=== PATIENT | female | born 1995 | race Hispanic/Latino ===

== ENCOUNTER → 2023-07-14 | Emergency (ER) | payer SELFPAY ==
[~2023-07-14] MED LIST: DIPHENHYDRAMINE 50 MG/ML VIAL ONE; KETOROLAC 30 MG/ML INJ ONE; METOCLOPRAMIDE 10 MG/2mL INJ ONE; NA CHLORIDE 0.9% 1,000 ML ONE; NA CHLORIDE 0.9% 50 ML ONE
--- OUTSIDE RECORDS SUMMARY | 2023-07-14 23:48 | XMS REPORT | Continuity of Care Document ---
Author Name Unknown Address [address] [place] [address] thconnect Address [address] [place] [address] Care Team Providers Care Physician Assistant Psychiatry Name Role Phone [email or web address] Attending Clinician Unavaila ble [email or web address] Admitting Clinician Unavaila ble Encounters Start Date/Time End Date/Time Encounter Type Admission Type Attending Clinicians Care Facility Care Department Encounter ID Source 2023-05-24 00:00:00 2023-05-24 00:00:00 Outpatient [email or web address] [facility] [id number] [facility]
[2023-07-15 00:58] LABS: Absolute Lymphocytes (CBC) 5.6 K/uL (0.7-4.9); Hematocrit 39.4 % (36.0-45.0); Lymphocytes % 46.1 % (15.3-44.8); MCV 81.7 fL (80-100); MPV 8.2 fL (7.6-11.3); Platelets 367 thou/uL (152-406); RBC Red Blood Cell Count 4.82 M/uL (3.86-4.86)
[2023-07-15 01:03] LABS: Specific Gravity 1.003 (1.005-1.030)
[2023-07-15 01:06] LABS: ALT/SGPT 35 U/L (13-56); AST/SGOT 20 U/L (15-37); Albumin 3.9 g/dL (3.4-5.0); Alkaline Phosphatase 102 U/L (45-117); BUN Blood Urea Nitrogen 5 mg/dL (7-18); Bicarbonate 24 mEq/L (21-32); Bilirubin Total 0.2 mg/dL (0.2-1.0); Glomerular Filtration Rate 125 ml/min (=/>90); Glucose Level 88 mg/dL (74-106); Potassium 3.3 mEq/L (3.5-5.1); Protein, Total 8.5 g/dL (6.4-8.2); Sodium Level 139 mEq/L (136-145); Specific Gravity < 1.005 (1.005-1.030); Troponin High Sensitivity 7.9 pg/mL (<58.9); Urine Bacteria <20 /HPF (<20); Urine Bilirubin NEGATIVE (Negative); Urine Blood Negative (Negative); Urine Clarity Clear (Clear); Urine Color Colorless (Yellow); Urine Glucose NEGATIVE (Negative); Urine Protein NEGATIVE (Negative); Urine RBC None Seen /HPF (None Seen); Urine Urobilinogen Normal (Normal); Urine pH 6.5 (5.0-7.0)
[2023-07-15 01:31] LABS: Bilirubin Direct < 0.1 mg/dL (0-0.2); Bilirubin Indirect, Calculated ND mg/dL (0.2-0.8)
[2023-07-15 01:37] LABS: Blood Morphology Comment NOT SEEN (NOT SEEN); Platelet Estimate ADEQ
--- NOTE | 2023-07-15 03:05 | EDPHYS ---
Physician Documentation [facility] Name: Lalitha Huertas Age: 28 yrs Sex: Female : 1995 Arrival Date: 07/14/2023 Time: 23:44 Bed 7 Private MD: ED Physician Osman Dumont HPI: 07/14 23:53 This 28 yrs old Female presents to ER via Unassigned with complaints of sp4 NUMBNESS/TINGLING IN EXT. 07/15 00:59 28-year-old female presents with 2 weeks of intermittent right-sided tingling, some sp4 report of right-sided numbness as well, report of headache, report of chest pain, intermittent tingling which became worse this evening. . Historical: - Allergies: 00:05 No Known Allergies; jb4 - PMHx: 00:05 None; jb4 - PSHx: 00:05 None; jb4 - Immunization history:: Adult Immunizations not up to date. - Social history:: Smoking status: Patient denies any tobacco usage or history of. Patient uses alcohol, occasionally. - Family history:: not pertinent. ROS: 00:59 Constitutional: Positive right-sided numbness and tingling, intermittent chest pains sp4 on the right side intermittent headache. 00:59 All other systems are negative, Exam: 00:58 ECG was reviewed by the Attending Physician. EKG time 0047, normal sinus rhythm at a sp4 rate of 90, normal EKG 00:59 Constitutional: This is a well developed, well nourished patient who is awake, alert, sp4 and in no acute distress. Head/Face: Normocephalic, atraumatic. Eyes: Pupils equal round and reactive to light, extra-ocular motions intact. Lids and lashes normal. Conjunctiva and sclera are not injected. Cornea within normal limits. Periorbital areas with no swelling, redness, or edema. ENT: Nares patent. No nasal discharge, no septal abnormalities noted. Tympanic membranes are normal and external auditory canals are clear. Oropharynx with no redness, swelling, or masses, exudates, or evidence of obstruction, uvula midline. Mucous membranes moist. Neck: Trachea midline, no thyromegaly or masses palpated, and no cervical lymphadenopathy. Supple, full range of motion without nuchal rigidity, or vertebral point tenderness. Chest/axilla: Normal chest wall appearance and motion. Nontender with no deformity. No lesions are appreciated. Cardiovascular: Regular rate and rhythm with a normal S1 and S2. No gallops, murmurs, or rubs. Normal PMI, no JVD. No pulse deficits. Respiratory: Lungs have equal breath sounds bilaterally, clear to auscultation and percussion. No rales, rhonchi or wheezes noted. No increased work of breathing, no retractions or nasal flaring. Abdomen/GI: Soft, non-tender, with normal bowel sounds. No distension or tympany. No guarding or rebound. No evidence of tenderness throughout. Back: No spinal tenderness. No costovertebral tenderness. Skin: Warm, dry with normal turgor. Normal color with no rashes, no lesions, and no evidence of cellulitis. MS/ Extremity: Pulses equal, no cyanosis. Neurovascular intact. Full, normal range of motion. Neuro: Awake and alert, GCS 15, oriented to person, place, time, and situation. Cranial nerves II-XII grossly intact. Motor strength 5/5 in all extremities. Sensory grossly intact. Psych: Awake, alert, with orientation to person, place and time. Behavior, mood, and affect are within normal limits Vital Signs: 00:01 BP 134 / 80; Pulse 93; Resp 16; Temp 98.2(TE); Pulse Ox 100% on R/A; Weight 66.68 kg; jb4 Height 5 ft. 1 in. ; Pain 3/10; 00:28 BP 114 / 69; Pulse 75; Resp 18; Pulse Ox 100% ; ls5 03:05 BP 91 / 50; Pulse 97; Resp 18 S; Pulse Ox 98% on R/A; as6 00:01 Body Mass Index 27.78 (66.68 kg, 154.94 cm) jb4 00:01 Pain Scale: Adult jb4 NIH Stroke Scale Scores: 00:13 NIHSS Score: 0 sp4 Reza Coma Score: 00:13 Eye Response: spontaneous(4). Motor Response: obeys commands(6). Verbal Response: sp4 oriented(5). Total: 15. Visual Acuity: 00:13 Left Eye Visual acuity 20/20, Pupil size 5 mm, Normal, React To Light, Reactive To sp4 Accomodation; Right Eye Visual acuity 20/20, Pupil size 5 mm, Normal, React To Light, Reactive To Accomodation; Both Eyes Visual acuity 20/20; Without Lenses; MDM: 07/14 23:55 Patient medically screened. sp4 07/15 01:01 Differential Diagnosis altered mental status, sepsis, flu. Data reviewed: vital signs, sp4 nurses notes, lab test result(s), EKG, radiologic studies, CT scan. Consideration of Admission/Observation Escalation of care including admission/observation considered. 01:28 ED course: CT - CLINICAL HISTORY: HEADACHE COMPARISON: None. 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 FINDINGS: There is no acute hemorrhage, mass effect or midline shift. Lamb-white differentiation is preserved. There is no hydrocephalus. There is no significant volume loss for age. The calvarium is intact. Orbits and globes are unremarkable. The paranasal sinuses are clear. Mastoid air cells are clear. IMPRESSION: No acute intracranial findings. 03:04 ED course: Workup reveals mild alcohol intoxication but is otherwise unremarkable. Her sp4 electrolytes are within tolerable limits. Patient's headache is gone. Patient is feeling much improved. Stable for discharge home. . 12 00:08 Order name: Basic Metabolic Panel; Complete Time: 02:59 sp4 07/15 00:08 Order name: CBC with Diff; Complete Time: 02:59 sp4 07/15 00:08 Order name: LFT's; Complete Time: 02:59 sp4 07/15 00:08 Order name: Magnesium; Complete Time: 02:59 sp4 07/15 00:08 Order name: Troponin HS; Complete Time: 02:59 sp4 07/15 00:12 Order name: Test, Urine; Complete Time: 01:24 sp4 07/15 00:13 Order name: Urinalysis W/Microscopic; Complete Time: 01:24 sp4 07/15 01:08 Order name: Manual Differential; Complete Time: 02:59 EDMS 07/15 01:09 Order name: T4 Free; Complete Time: 02:59 EDMS 07/15 01:09 Order name: Thyroid Stimulating Hormone; Complete Time: 02:59 EDMS 07/15 01:25 Order name: Alcohol Level; Complete Time: 02:59 sp4 07/15 00:09 Order name: CT Head Brain wo Cont sp4 07/15 00:08 Order name: EKG; Complete Time: 00:09 sp4 07/15 00:08 Order name: Cardiac monitoring; Complete Time: 00:26 sp4 07/15 00:08 Order name: EKG - Nurse/Tech; Complete Time: 00:51 sp4 07/15 00:08 Order name: IV Saline Lock; Complete Time: 00:26 sp4 07/15 00:08 Order name: Labs collected and sent; Complete Time: 00: sp4 07/15 00:08 Order name: O2 Per Protocol; Complete Time: 00:10 sp4 07/15 00:08 Order name: O2 Sat Monitoring; Complete Time: 00:10 sp4 EC:58 Rate is 90 beats/min. Rhythm is regular, Normal Sinus Rhythm. QRS [place] is Normal. MS sp4 interval is normal. QRS interval is normal. QT interval is normal. No Q waves. T waves are Normal. No ST changes noted. Clinical impression: Normal ECG. Interpreted by me. Reviewed by me. Administered Medications: 00:33 Drug: Ketorolac IVP 30 mg IVP once Route: IVP; Site: right antecubital; vc1 00:42 Drug: metoCLOPramide IVP 10 mg IVP once; over 1 to 2 minutes Route: IVP; Site: left vc1 antecubital; 00:42 Drug: diphenhydrAMINE IVP 25 mg IVP once Route: IVP; Site: left antecubital; vc1 01:29 Drug: NS 0.9% IV 1000 ml IV at 1 bolus Per protocol; 1000 mL bolus Route: IV; Rate: 1 vc1 bolus; Site: right antecubital; Disposition Summary: 07/15/23 03:05 Discharge Ordered Notes: Location: Home sp4 Problem: new sp4 Symptoms: have improved sp4 Condition: Stable sp4 Diagnosis - Anxiety disorder, unspecified sp4 - Acute anxiety attack, alcohol intoxication, sp4 Followup: sp4 - With: Praveen Galo DO - When: 7 - 10 days - Reason: Recheck today's complaints Discharge Instructions: - Discharge Summary Sheet sp4 - Panic Attack, Pism-cu-Hwgp sp4 Forms: - Patient Portal Instructions sp4 NIH Stroke Scale - NIH Stroke Score Date: 07/15/2023 Time: 00:13 Total Score = 0 10. Dysarthria (speech clarity - read or repeat words) - 0(Normal) 11. Extinction and Inattention (visual/tactile/auditory/spatial/personal) - 0(No abnormality) 1a. Level of Consciousness (LOC) - 0(Alert) 1b. Level of Consciousness (LOC) (Month \T\ Age) - 0(Both) 1c. LOC Commands (Open \T\ Closes Eyes/Coagulating Drying Supervisor) - 0(Both) 2. Best Gaze (Lateral Gaze Paresis) - 0(Normal) 3. Visual Field Loss - 0(No visual loss) 4. Facial Palsy - 0(Normal) 5a. Left Arm: Motor (10-second hold) - 0(No drift) 5b. Right Arm: Motor (10-second hold) - 0(No drift) 6a. Left Leg: Motor (5-second hold - always test supine) - 0(No drift) 6b. Right Leg: Motor (5-second hold - always test supine) - 0(No drift) 7. Limb Ataxia (finger/nose \T\ heel/bradford - test with eyes open) - 0(Absent) 8. Sensory Loss (pinprick arms/legs/face) - 0(Normal) 9. Best Language: Aphasia (description/naming/reading) - 0(No aphasia) Initials: sp4 Signatures: Dispatcher [employer] EDMS Dominick Morin RN RN jb4 Sil Cason RN RN vc1 Osman Dumont MD MD sp4 Corrections: (The following items were deleted from the chart) 01:09 00:58 THYROID STIMULAT HORMONE+C.LAB.BRZ ordered. EDMS EDMS 01:09 00:58 T4 FREE+C.LAB.BRZ ordered. EDMS EDMS
--- NOTE | 2023-07-15 03:05 | ER ---
Nurse's Notes [facility] Name: Lalitha Huertas Age: 28 yrs Sex: Female : 1995 Arrival Date: 07/14/2023 Time: 23:44 Bed 7 Private MD: Diagnosis: Anxiety disorder, unspecified;Acute anxiety attack, alcohol intoxication, Presentation: 07/15 00:01 Chief complaint: Patient states: for the past nearly 2 weeks. I have had intermittent jb4 numbness and tingling in my right extremities. It started in my hand and foot and tonight was the worst, it was my entire right side. I felt SOB and shaky. I fell better now but still a little shaky and have some numbness and tingling still. Coronavirus screen: At this time, the client does not indicate any symptoms associated with coronavirus-19. Ebola Screen: No symptoms or risks identified at this time. Initial Sepsis Screen: Does the patient meet any 2 criteria? No. Patient's initial sepsis screen is negative. Does the patient have a suspected source of infection? No. Patient's initial sepsis screen is negative. Risk Assessment: Do you want to hurt yourself or someone else? Patient reports no desire to harm self or others. Onset of symptoms was July 15, 2023. Transition of care: patient was not received from another setting of care. 00:01 Method Of Arrival: Ambulatory jb4 00:01 Acuity: MARIELA 3 jb4 Historical: - Allergies: 00:05 No Known Allergies; jb4 - PMHx: 00:05 None; jb4 - PSHx: 00:05 None; jb4 - Immunization history:: Adult Immunizations not up to date. - Social history:: Smoking status: Patient denies any tobacco usage or history of. Patient uses alcohol, occasionally. - Family history:: not pertinent. Screenin:14 [facility] ED Fall Risk Assessment (Adult) Score/Fall Risk Level 0 - 2 = Low Risk. Abuse as6 screen: Denies threats or abuse. Denies injuries from another. Nutritional screening: No deficits noted. Tuberculosis screening: No symptoms or risk factors identified. Assessment: 00:00 General: Appears in no apparent distress. uncomfortable, Behavior is anxious. General: vc1 Smells of alcohol. Pain: Denies pain. Neuro: Level of Consciousness is awake, obeys commands, Oriented to person, place, time, Reports numbness in right arm and left arm. Cardiovascular: No deficits noted. Respiratory: Airway is patent Respiratory effort is even, unlabored, Respiratory pattern is regular, symmetrical. GI: No deficits noted. No signs and/or symptoms were reported involving the gastrointestinal system. : No deficits noted. No signs and/or symptoms were reported regarding the genitourinary system. EENT: No deficits noted. No signs and/or symptoms were reported regarding the EENT system. Derm: No deficits noted. No signs and/or symptoms reported regarding the dermatologic system. 03:28 Reassessment: Patient and/or family updated on plan of care and expected duration. Pain vc1 level reassessed. Patient is alert, oriented x 3, equal unlabored respirations, skin warm/dry/pink. Patient states symptoms have improved. Vital Signs: 00:01 BP 134 / 80; Pulse 93; Resp 16; Temp 98.2(TE); Pulse Ox 100% on R/A; Weight 66.68 kg; jb4 Height 5 ft. 1 in. ; Pain 3/10; 00:28 BP 114 / 69; Pulse 75; Resp 18; Pulse Ox 100% ; ls5 03:05 BP 91 / 50; Pulse 97; Resp 18 S; Pulse Ox 98% on R/A; as6 00:01 Body Mass Index 27.78 (66.68 kg, 154.94 cm) jb4 00:01 Pain Scale: Adult jb4 Visual Acuity: 00:13 Left Eye Visual acuity 20/20, Pupil size 5 mm, Normal, React To Light, Reactive To sp4 Accomodation; Right Eye Visual acuity 20/20, Pupil size 5 mm, Normal, React To Light, Reactive To Accomodation; Both Eyes Visual acuity 20/20; Without Lenses; Reza Coma Score: 00:13 Eye Response: spontaneous(4). Motor Response: obeys commands(6). Verbal Response: sp4 oriented(5). Total: 15. NIH Stroke Scale Scores: 00:13 NIHSS Score: 0 sp4 ED Course: 07/14 23:46 Patient arrived in ED. jj6 23:53 Osman Dumont MD is Attending Physician. sp4 07/15 00:00 Dominick Morin RN is Primary Nurse. jb4 00:00 Patient has correct armband on for positive identification. Placed in gown. Bed in low vc1 position. Call light in reach. Client placed on continuous cardiac and pulse oximetry monitoring. NIBP monitoring applied. 00:05 Triage completed. jb4 00:05 Arm band placed on right wrist. jb4 00:15 Matthew Barnes, RN is Primary Nurse. as6 00:27 Inserted saline lock: 20 gauge in right antecubital area, using aseptic technique. ls5 Blood collected. 00:27 Urine collected: clean catch specimen, clear. ls5 00:43 CT Head Brain wo Cont In Process Unspecified. EDMS 01:21 T4 Free Sent. ls5 01:22 Thyroid Stimulating Hormone Sent. ls5 01:22 Manual Differential Sent. ls5 03:05 Praveen Galo DO is Referral Physician. sp4 03:27 No provider procedures requiring assistance completed. IV discontinued, intact, vc1 bleeding controlled, No redness/swelling at site. Pressure dressing applied. Administered Medications: 00:33 Drug: Ketorolac IVP 30 mg IVP once Route: IVP; Site: right antecubital; vc1 00:42 Drug: metoCLOPramide IVP 10 mg IVP once; over 1 to 2 minutes Route: IVP; Site: left vc1 antecubital; 00:42 Drug: diphenhydrAMINE IVP 25 mg IVP once Route: IVP; Site: left antecubital; vc1 01:29 Drug: NS 0.9% IV 1000 ml IV at 1 bolus Per protocol; 1000 mL bolus Route: IV; Rate: 1 vc1 bolus; Site: right antecubital; Medication: 00:14 VIS not applicable for this client. as6 Outcome: 03:05 Discharge ordered by . sp4 03:27 Discharged to home ambulatory, with significant other, vc1 03:27 Condition: good 03:27 Discharge instructions given to patient, Instructed on discharge instructions, follow up and referral plans. Demonstrated understanding of instructions, follow-up care, 03:31 Patient left the ED. vc1 NIH Stroke Scale - NIH Stroke Score Date: 07/15/2023 Time: 00:13 Total Score = 0 10. Dysarthria (speech clarity - read or repeat words) - 0(Normal) 11. Extinction and Inattention (visual/tactile/auditory/spatial/personal) - 0(No abnormality) 1a. Level of Consciousness (LOC) - 0(Alert) 1b. Level of Consciousness (LOC) (Month \T\ Age) - 0(Both) 1c. LOC Commands (Open \T\ Closes Eyes/Transonic Engineer) - 0(Both) 2. Best Gaze (Lateral Gaze Paresis) - 0(Normal) 3. Visual Field Loss - 0(No visual loss) 4. Facial Palsy - 0(Normal) 5a. Left Arm: Motor (10-second hold) - 0(No drift) 5b. Right Arm: Motor (10-second hold) - 0(No drift) 6a. Left Leg: Motor (5-second hold - always test supine) - 0(No drift) 6b. Right Leg: Motor (5-second hold - always test supine) - 0(No drift) 7. Limb Ataxia (finger/nose \T\ heel/bradford - test with eyes open) - 0(Absent) 8. Sensory Loss (pinprick arms/legs/face) - 0(Normal) 9. Best Language: Aphasia (description/naming/reading) - 0(No aphasia) Initials: sp4 Signatures: Dispatcher [employer] EDDominick Boyle RN RN jb4 Brooke Ricardo jj6 Matthew Barnes RN RN as6 Sil Cason RN RN vc1 Carlos Ruelas ls5 Osman Dumont MD MD sp4
[2023-07-15 04:15] VITALS: TEMP 98.2
[2023-07-15 04:25] VITALS: BP 91/50; O2SAT 98
--- NOTE | 2023-07-15 13:28 | RAD REPORT ---
EXAM DESCRIPTION: CT - Head Brain Wo Cont - 07/15/2023 6:38 am CLINICAL HISTORY: HEADACHE COMPARISON: None. 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 FINDINGS: There is no acute hemorrhage, mass effect or midline shift. Lamb-white differentiation is preserved. There is no hydrocephalus. There is no significant volume loss for age. The calvarium is intact. Orbits and globes are unremarkable. The paranasal sinuses are clear. Mastoid air cells are clear. IMPRESSION: No acute intracranial findings. Electronically signed by: Kwasi Velazquez MD 07/15/2023 01:16 AM FOOD PHOTOGRAPHER Due to temporary technical issues with the PACS/Fluency reporting system, reports are being signed by the in house radiologist without review as a courtesy to ensure prompt reporting. The interpreting r adiologist is fully responsible for the content of the report.
--- NOTE | 2023-07-16 15:11 | EKG ---
Test Date: 2023-07-15 Test Time: 00:47:15 Spot Machine Operator: JIA MEASUREMENT RESULTS: Intervals: Rate: 90 MN: 128 QRSD: 88 QT: 356 QTc: 435 [place]: P: 49 MN: 128 QRS: 42 T: 33 INTERPRETIVE STATEMENTS: Normal sinus rhythm Normal ECG Compared to ECG 04/07/2017 00:42:32 No significant changes Electronically Signed On 07-16-23 15:08:11 [employer] by Chele Dennis
== END ==
LOC: ER 23:44
DX: F41.0 Panic disorder [episodic paroxysmal anxiety] (principal); F10.129 Alcohol abuse with intoxication, unspecified
CPT/HCPCS: 70450; 93005; 99284